=== PATIENT | female | born 1995 | race Caucasian/White ===

== ENCOUNTER → 2022-01-13 12:57 | Outpatient (REF) | payer OTHER, SELFPAY | LOC: HO.SL 12:57 | PROVIDERS: PCP Internal Medicine; Visit Provider Internal Medicine | DX: G47.33 Obstructive sleep apnea (adult) (pediatric) (principal) | CPT/HCPCS: 95806 ==

== ENCOUNTER 2023-02-03 13:05 | Outpatient (AMB) | payer OTHER, SELFPAY ==
[2023-02-03 13:06] VITALS: BP 122/80; PULSE 92; O2SAT 98; BMI 39.7
--- NOTE | 2023-02-03 13:06 | MHC.OFFVIS ---
Intake Vital Signs 02/03/23 13:06 Height 4 ft 11.5 in Weight 200 lb 2 oz BMI 39.7 BP 122/80 Blood Pressure Location Lt brachial Position Sitting Pulse 92 Pulse Source Pulse Oximeter Pulse Oximetry (%) 98 Oxygen Delivery Method Room Air Intake Visit Reasons: [employer]: Severe Sleep Apnea - LVM Intake Note: Pt presents to the office today for a new patient visit for severe sleep apnea. Pt states she has had it for over 10 years. Pt states she used to use a CPAP as a child. Pt states she snores when shes sleeping as well. Allergies No Known Allergies Allergy (Verified 02/03/23 13:10) HPI HPI Comments History of Present Illness Details 27 y/o female patient presents for new in-person visit to manage sleep apnea. Pt reports that she was diagnosed with BUTCH at her age 12 She has used CPAP for a while, but stopped using it, because of moving and . Pt had a repeat sleep study done in 12/2021. The home sleep study result was severe degree sleep apnea The AHI was 88/hr, oxygen clarice was 63% and the duration of O2 sat <88% was 49 min. However, she could not have CPAP due to insurance issue, and the home sleep study result is to apply for a new CPAP. Pt experienced more symptoms when she was . She still having gasping arousals, shortness of breath, and difficulty staying sleep. She is very tired during the day. Sleep questionnaire: Have you ever been diagnosed with a sleep disorder? Yes, severe degree of sleep apnea. Have you ever had a sleep study in the past? Yes, home sleep study. Have you ever been treated for a sleep disorder? No. Do you take medications for a sleep disorder? No. Do you snore? Yes. Do you wake up gasping at night? Yes. Do you have episodes of apneas? Yes. If yes, are they witnessed? Yes. Do you have episodes of nocturnal chest pain or dyspnea? Yes. Do you have difficulty initiating sleep? Yes, sometimes. Do you have difficulty maintaining sleep? Yes. Do you wake up tired? Yes. Do you have headaches upon awakening? No. Do you wake up with dry mouth or throat? Yes. Do you have GERD? No. Do you have nocturia? Yes, sometimes. Do you have nocturnal leg cramps? No. Do you have symptoms of restless legs? No. Do you act out your dreams? No. Sleep hygiene questionnaire: What is your usual sleep routine? Usual bedtime is at 10:30-11 pm; Usual wake up time is at 7-8 am. Do you take naps? Yes, sometimes. Is your sleep environment cool, dark, and quiet? Yes. Do you exercise? No. Do you take caffeine or other stimulants? Coffee in the morning, sometimes night. Do you use electronics in bed? Yes. What is your work schedule? 7:30 -3:30 pm. Hypersomnolence questionnaire: Do you have daytime tiredness or fatigue? Yes. Do you easily fall asleep when inactive? No. Have you ever had episodes of sudden weakness? No. Have you ever had episodes of sudden weakness associated with strong emotions? No. PFSH Surgical History Hx of tonsillectomy Family History Father Type 1 diabetes Mother No problems noted. 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, world geography teacher Housing: House Patient Tobacco Use Status: Never used Tobacco e-Cigarette/Vaping Use: Never Used Current occupational status: employed Cognitive needs: No Hearing needs: No Vision needs: No Review of Systems Const All systems reviewed & are unremarkable except as noted in HPI and below Physical Exam Vital Signs: Last Vital Signs Pulse 92 02/03/23 13:06 BP 122/80 02/03/23 13:06 Pulse Ox 98 02/03/23 13:06 Oxygen Delivery Method Room Air 02/03/23 13:06 BMI result Body Mass Index 39.7 Const General: cooperative Nutritional Appearance: obese Orientation/consciousness: patient oriented x3 Neck Neck: Yes full ROM and Yes supple Resp Effort & Inspection: normal respiratory effort and able to speak in complete sentences Neuro General: patient oriented x3, gait normal and moves all extremities Gait exam (Neuro): Normal gait present Motor exam (neuro): 5/5 motor strength present throughout, Pronator motor function not present and no tremor noted Psych Appearance: grossly normal Mental Status: mental status grossly normal Speech and movement: Normal speech and movement present Affect: normal affect Attitude: cooperative Assessment & Plan Assessment & Plan (1) Obese: Code(s): E66.9 - Obesity, unspecified (2) Sleep apnea: Comment: severe BUTCH, home sleep study 01/15, refer to sleep medicine Code(s): G47.30 - Sleep apnea, unspecified Plan Pt is advised to undergo in lab sleep study to assess for sleep apnea. Will f/u with pt after study to discuss results and appropriate treatment options. Wt reduction advised. Pt to call with any worsening concerns or questions. Orders: Orders RT PSG in-lab sleep study Today E11.9 - Type 2 diabetes mellitus without complications, E66.9 - Obesity, unspecified, G47.30 - Sleep apnea, unspecified, J45.909 - Unspecified asthma, uncomplicated Coding Level of Care Code New Pt Level 4 (92264) Diagnoses Obese E66.9 Sleep apnea G47.30
== END 2023-02-03 13:42 | disposition home or self-care (01) ==
PROVIDERS: PCP Student in an Organized Health Care Education/Training Program; Visit Provider Nurse Practitioner Family
DX: E66.9 Obesity, unspecified (principal); G47.30 Sleep apnea, unspecified
CPT/HCPCS: 99204

== ENCOUNTER → 2023-02-03 13:05 | Outpatient (BNVA) | payer OTHER, SELFPAY | PROVIDERS: PCP Student in an Organized Health Care Education/Training Program; Visit Provider Nurse Practitioner Family ==

== ENCOUNTER → 2023-03-14 20:30 | Outpatient (REF) | payer OTHER, SELFPAY | LOC: HO.SL 20:30 | PROVIDERS: PCP Student in an Organized Health Care Education/Training Program; Visit Provider Nurse Practitioner Family | DX: G47.33 Obstructive sleep apnea (adult) (pediatric) (principal); E66.9 Obesity, unspecified; J45.909 Unspecified asthma, uncomplicated; E11.9 Type 2 diabetes mellitus without complications | CPT/HCPCS: 95810 ==

== ENCOUNTER → 2023-03-14 22:57 | Outpatient (BNV) | payer OTHER, SELFPAY | PROVIDERS: PCP Student in an Organized Health Care Education/Training Program; Visit Provider Psychiatry & Neurology Neurology | DX: G47.33 Obstructive sleep apnea (adult) (pediatric) (principal) | CPT/HCPCS: 95810 ==